=== PATIENT | male | born 1955 | race Caucasian/White ===

== ENCOUNTER 2019-03-28 15:54 | Emergency (ER) | payer OTHER ==
[~2019-03-28] VITALS: Ht 170.2 cm; Wt 83.0 kg
[~2019-03-28 15:54] MED LIST: AIRBORNE EFFER1 EACH PO; AVODART0.5 MG; ENALAPRIL MALEAT5 MG; KETOROLAC TROME10 MG PO; OSEL75CA PO; PAXIL20 MG; PROMETH-CODEIN 65 ML PO
[2019-03-28] MEDS ORDERED: LEXAPRO5 MG (16:36)
[2019-03-28] MEDS ORDERED: DEXILANT30 MG (16:37)
[2019-03-28] MEDS ORDERED: RESTORIL15 M1 (16:38)
== END 2019-03-28 21:50 | disposition home or self-care (01) ==
LOC: ER 15:54
DX: K52.89 Other specified noninfective gastroenteritis and colitis (principal)